=== PATIENT | male | born 1975 | race Hispanic/Latino ===

== ENCOUNTER 2024-11-17 12:01 | Emergency (ER) | payer SELFPAY ==
[~2024-11-17] VITALS: Ht 162.6 cm; Wt 104.3 kg
[2024-11-17 12:40] VITALS: PULSE 86; RESP 16; TEMP 98.5; O2SAT 96
[2024-11-17] MEDS ORDERED: SODIUM CHLORIDE 0.9% 1000ML 1,000 ML IV STA (15:51)
[2024-11-17] MEDS ORDERED: AMOX TR-K CLV1 EAC2 PO (16:19)
[2024-11-17] MEDS ORDERED: DOXYCYCLINE HY100 MG PO (16:19)
== END 2024-11-17 17:05 | disposition home or self-care (01) ==
LOC: ER 12:42
DX: S51.821A Laceration with foreign body of right forearm, initial encounter (principal); W26.8XXA Contact with other sharp object(s), not elsewhere classified, initial encounter; W45.8XXA Other foreign body or object entering through skin, initial encounter; Y92.89 Other specified places as the place of occurrence of the external cause
CPT/HCPCS: 99283